=== PATIENT | female | born 1980 | race African-American/Black ===

== ENCOUNTER 2018-12-27 07:21 | Emergency (ER) | payer MEDICARE, OTHER, MEDICAID ==
[2018-12-27] MEDS: LIDOCAINE/MYLANTA 40 ML BTL PO (07:51)
[2018-12-27] MEDS: ONDANSETRON (ODT) 4 MG TAB ODT (07:51)
[2018-12-27] MEDS: BELLADONNA/PHENOBARBITAL TAB PO (07:51)
[2018-12-27] MEDS: KETOROLAC 30 MG INJ IM (07:52)
== END 2018-12-27 08:51 | disposition home or self-care (01) ==
LOC: E/R 07:21
DX: R10.84 Generalized abdominal pain (principal); G89.4 Chronic pain syndrome
CPT/HCPCS: 96372; 99284-25